=== PATIENT | male | born 1950 | race Caucasian/White ===

== ENCOUNTER 2018-06-20 17:12 | Inpatient (IN) | payer OTHER ==
[~2018-06-20] VITALS: Ht 188 cm; Wt 150.9 kg
[2018-06-20 17:42] LABS: BASOPHILS % (AUTO) 0.8 % (0.0-5.0); EOSINOPHILS % (AUTO) 1.9 % (0.0-8.0); HEMATOCRIT 40.4 % (42-54); LYMPHOCYTES % (AUTO) 11.3 % (21.0-51.0); MEAN CORPUSCULAR HEMOGLOBIN 29.9 pg (27.0-33.0); MEAN CORPUSCULAR HGB CONC 32.7 g/dL (32.0-36.0); MEAN CORPUSCULAR VOLUME 91.5 fL (79-99); PLATELET COUNT (AUTO) 177 K/uL (130-400); RED BLOOD CELL COUNT(AUTO) 4.41 MIL/uL (4.50-6.20); RED CELL DISTRIBUTION WIDTH 15.3 % (11.0-15.5); WHITE BLOOD COUNT (AUTO) 8.5 K/uL (4.8-10.8)
[2018-06-20 17:54] LABS: INR 1.03 (0.85-1.15); PARTIAL THROMBOPLASTIN TIME 27.5 SEC (26.3-35.5); PROTHROMBIN TIME 10.8 SEC (9.6-11.6)
[2018-06-20 17:58] LABS: CREATININE 1.1 mg/dL (0.5-1.5); POTASSIUM 3.4 mmol/L (3.5-5.1)
[2018-06-20 18:12] LABS: ALBUMIN 3.6 g/dL (3.5-5.0); BILIRUBIN,TOTAL 0.8 mg/dL (0.2-1.0); CREATINE KINASE MB 1.3 ng/mL (0.5-3.6); TOTAL PROTEIN, SERUM 6.8 g/dL (6.0-8.3)
[2018-06-20] MEDS ORDERED: FUROSEMIDE 10 MG/ML 4ML VIAL ONE (19:04)
[2018-06-20] MEDS ORDERED: LIDOCAINE HCL-MPF 1% 2ML VIAL IVP PRN (20:45)
[2018-06-20] MEDS ORDERED: ONDANSETRON HCL 4 MG/2 ML VIAL IV PRN (20:45)
[2018-06-20] MEDS ORDERED: POTASSIUM CHLORIDE 10% ELIXIR 20 MEQ/15 ML UDCUP PO PRN (20:45)
[2018-06-20] MEDS ORDERED: POTASSIUM CHLORIDE 20MEQ/100ML 100 ML IV PRN (20:45)
[2018-06-20] MEDS ORDERED: ACETAMINOPHEN 325 MG TAB PO PRN (20:45)
[2018-06-20] MEDS: ENOXAPARIN SODIUM 80 MG/0.8 ML SQ SCH (21:00)
[2018-06-20] MEDS: FUROSEMIDE 10 MG/ML 4ML VIAL IVP SCH (21:00)
[2018-06-20] MEDS: LABETALOL 20 MG/4 ML DISP.SYRIN IV SCH (22:15)
[2018-06-20] MEDS ORDERED: LABETALOL HCL 5 MG/ML 20ML VIAL IV ONE (23:12)
[2018-06-20 23:45] VITALS: BP 156/92
[2018-06-21] MEDS: POTASSIUM CHLORIDE 20 MEQ ERTAB PO PRN (00:56)
[2018-06-21 04:00] VITALS: BP 142/84
[2018-06-21 04:56] LABS: BASOPHILS % (AUTO) 0.8 % (0.0-5.0); EOSINOPHILS % (AUTO) 2.5 % (0.0-8.0); HEMATOCRIT 38.6 % (42-54); LYMPHOCYTES % (AUTO) 12.3 % (21.0-51.0); MEAN CORPUSCULAR HEMOGLOBIN 31.1 pg (27.0-33.0); MEAN CORPUSCULAR HGB CONC 34.1 g/dL (32.0-36.0); MEAN CORPUSCULAR VOLUME 91.2 fL (79-99); MONOCYTES % (AUTO) 7.9 % (3.0-13.0); NEUTROPHILS % (AUTO) 76.5 % (40.0-77.0); PLATELET COUNT (AUTO) 204 K/uL (130-400); RED BLOOD CELL COUNT(AUTO) 4.23 MIL/uL (4.50-6.20); RED CELL DISTRIBUTION WIDTH 15.9 % (11.0-15.5); WHITE BLOOD COUNT (AUTO) 7.7 K/uL (4.8-10.8)
[2018-06-21 05:06] LABS: ALBUMIN 3.4 g/dL (3.5-5.0); CREATININE 1.2 mg/dL (0.5-1.5); MAGNESIUM 1.8 mg/dL (1.80-2.40); POTASSIUM 3.6 mmol/L (3.5-5.1); TOTAL PROTEIN, SERUM 6.7 g/dL (6.0-8.3)
[2018-06-21 05:41] LABS: B-TYPE NATRIURETIC PEPTIDE 833 pg/mL (0-100)
[2018-06-21 08:00] VITALS: BP 140/87
[2018-06-21] MEDS: ENOXAPARIN SODIUM 80 MG/0.8 ML SQ SCH ×2 (09:31→21:48)
[2018-06-21] MEDS: FLUNISOLIDE 25 MCG/SPRAY 25 ML NASAL SPRY EN SCH ×2 (09:31→21:49)
[2018-06-21] MEDS: PANTOPRAZOLE SODIUM 40 MG TABLET.DR PO SCH (09:32)
[2018-06-21] MEDS: FUROSEMIDE 10 MG/ML 4ML VIAL IVP SCH ×2 (09:32→21:46)
[2018-06-21 11:00] VITALS: BP 168/104
[2018-06-21] MEDS ORDERED: METO50TA18 PO (17:56)
[2018-06-21] MEDS ORDERED: VIT1CAPS47 PO (17:56)
[2018-06-21] MEDS ORDERED: FURO40TA5 PO (17:56)
[2018-06-21] MEDS ORDERED: CHOL100040 PO (17:56)
[2018-06-21] MEDS ORDERED: BUDE10.2 IH (17:56)
[2018-06-21] MEDS ORDERED: HYDR-4060 PO (17:56)
[2018-06-21] MEDS ORDERED: TRAZ-187 PO (17:56)
[2018-06-21] MEDS ORDERED: TAMS0.4C32 PO (17:56)
[2018-06-21] MEDS ORDERED: ISOS60TA4 PO (17:56)
[2018-06-21] MEDS ORDERED: FERR325T22 PO (17:56)
[2018-06-21] MEDS ORDERED: ATOR40TA71 PO (17:56)
[2018-06-21] MEDS ORDERED: POTA99TA4 PO (17:56)
[2018-06-21] MEDS ORDERED: ALBU8.5H8 IH (17:56)
[2018-06-21] MEDS ORDERED: ALLO100T PO (17:56)
[2018-06-21] MEDS ORDERED: AEC81 PO (17:56)
[2018-06-21 19:00] VITALS: BP 161/80
[2018-06-21] MEDS: LABETALOL 20 MG/4 ML DISP.SYRIN IV SCH (21:58)
[2018-06-21 23:57] VITALS: BP 145/82
[2018-06-22 04:00] VITALS: BP 158/64
[2018-06-22 05:21] LABS: BASOPHILS % (AUTO) 0.7 % (0.0-5.0); EOSINOPHILS % (AUTO) 2.5 % (0.0-8.0); HEMATOCRIT 41.9 % (42-54); LYMPHOCYTES % (AUTO) 13.7 % (21.0-51.0); MEAN CORPUSCULAR HEMOGLOBIN 30.2 pg (27.0-33.0); MEAN CORPUSCULAR HGB CONC 33.3 g/dL (32.0-36.0); MEAN CORPUSCULAR VOLUME 90.8 fL (79-99); MONOCYTES % (AUTO) 8.5 % (3.0-13.0); NEUTROPHILS % (AUTO) 74.6 % (40.0-77.0); NUCLEATED RED BLOOD CELLS 0.1 % (0.0-0.19); PLATELET COUNT (AUTO) 200 K/uL (130-400); RED BLOOD CELL COUNT(AUTO) 4.61 MIL/uL (4.50-6.20); RED CELL DISTRIBUTION WIDTH 15.4 % (11.0-15.5); WHITE BLOOD COUNT (AUTO) 8.8 K/uL (4.8-10.8)
[2018-06-22 05:46] LABS: B-TYPE NATRIURETIC PEPTIDE 1090 pg/mL (0-100)
[2018-06-22 05:49] LABS: ALBUMIN 3.6 g/dL (3.5-5.0); CREATININE 1.3 mg/dL (0.5-1.5); POTASSIUM 3.5 mmol/L (3.5-5.1); TOTAL PROTEIN, SERUM 7.2 g/dL (6.0-8.3)
[2018-06-22 07:00] VITALS: BP 159/74
[2018-06-22] MEDS: FUROSEMIDE 10 MG/ML 4ML VIAL IVP SCH ×2 (09:35→20:28)
[2018-06-22] MEDS: PANTOPRAZOLE SODIUM 40 MG TABLET.DR PO SCH (09:36)
[2018-06-22] MEDS: ENOXAPARIN SODIUM 80 MG/0.8 ML SQ SCH ×2 (09:36→20:28)
[2018-06-22] MEDS: FLUNISOLIDE 25 MCG/SPRAY 25 ML NASAL SPRY EN SCH ×2 (09:42→20:26)
[2018-06-22 11:00] VITALS: BP 166/86
[2018-06-22] MEDS ORDERED: HYDROCODONE/ACETAMINOPHEN 5/325 MG TAB PO PRN (12:45)
[2018-06-22] MEDS ORDERED: TRAZODONE HCL 100 MG TABLET PO PRN (12:45)
[2018-06-22 15:52] LABS: CREATINE KINASE MB 1.3 ng/mL (0.5-3.6); CREATINE KINASE, TOTAL 198 U/L (21-232); MYOGLOBIN 86 ng/mL (10-92); TROPONIN I < 0.04 ng/mL (0.00-0.06)
[2018-06-22 16:00] VITALS: BP 145/79
[2018-06-22] MEDS: ATORVASTATIN CALCIUM 40 MG TABLET PO SCH (16:51)
[2018-06-22] MEDS: POTASSIUM CHLORIDE 20 MEQ ERTAB PO PRN ×2 (16:52→18:47)
[2018-06-22] MEDS: ALBUTEROL SULFATE 0.083% 2.5 MG/3 ML INH IH SCH ×2 (18:06→23:25)
[2018-06-22] MEDS: BUDESONIDE 0.5 MG/2 ML INH IH SCH (18:06)
[2018-06-22 19:00] VITALS: BP 159/96
[2018-06-22] MEDS: METOPROLOL TARTRATE 50 MG TAB PO SCH (20:27)
[2018-06-22] MEDS ORDERED: SUB PER P&T FOR ASTHMA OR COPD RECOMMENDATION IH SCH (21:00)
[2018-06-23] VITALS (8 sets, daily range): BP systolic 123–159; BP diastolic 47–92
[2018-06-23] MEDS: ALBUTEROL SULFATE 0.083% 2.5 MG/3 ML INH IH SCH ×4 (05:57→23:08)
[2018-06-23] MEDS: BUDESONIDE 0.5 MG/2 ML INH IH SCH ×2 (05:57→18:35)
[2018-06-23] MEDS: ASPIRIN 81 MG EC TAB PO SCH (08:48)
[2018-06-23] MEDS: PANTOPRAZOLE SODIUM 40 MG TABLET.DR PO SCH (08:48)
[2018-06-23] MEDS: TAMSULOSIN HCL 0.4 MG CAP.ER.24H PO SCH (08:49)
[2018-06-23] MEDS: ENOXAPARIN SODIUM 80 MG/0.8 ML SQ SCH ×2 (08:49→21:04)
[2018-06-23] MEDS: METOPROLOL TARTRATE 50 MG TAB PO SCH ×2 (08:49→21:03)
[2018-06-23] MEDS: POTASSIUM CHLORIDE 10 MEQ/TAB.SA PO SCH (08:50)
[2018-06-23] MEDS: ALLOPURINOL 100 MG TABLET PO SCH (08:50)
[2018-06-23] MEDS: FERROUS SULFATE 325 MG TABLET.DR PO SCH ×3 (08:53→18:32)
[2018-06-23] MEDS: ISOSORBIDE MONO 60 MG TAB.SR PO SCH (08:53)
[2018-06-23] MEDS: Cholecalciferol (Vitamin D3) 1,000 UNIT PO SCH (08:55)
[2018-06-23] MEDS: [UNRECOGNIZED DRUG - OTHER] PO SCH ×2 (08:55→21:00)
[2018-06-23] MEDS: FUROSEMIDE 10 MG/ML 4ML VIAL IVP SCH ×2 (08:56→21:03)
[2018-06-23 10:19] LABS: EOSINOPHILS % (AUTO) 2.9 % (0.0-8.0); HEMATOCRIT 39.3 % (42-54); LYMPHOCYTES % (AUTO) 12.9 % (21.0-51.0); MEAN CORPUSCULAR HEMOGLOBIN 30.6 pg (27.0-33.0); MEAN CORPUSCULAR HGB CONC 33.6 g/dL (32.0-36.0); MEAN CORPUSCULAR VOLUME 91.2 fL (79-99); MONOCYTES % (AUTO) 7.4 % (3.0-13.0); NEUTROPHILS % (AUTO) 75.8 % (40.0-77.0); NUCLEATED RED BLOOD CELLS 0.1 % (0.0-0.19); PLATELET COUNT (AUTO) 207 K/uL (130-400); RED BLOOD CELL COUNT(AUTO) 4.31 MIL/uL (4.50-6.20); RED CELL DISTRIBUTION WIDTH 15.6 % (11.0-15.5)
[2018-06-23] MEDS: FLUNISOLIDE 25 MCG/SPRAY 25 ML NASAL SPRY EN SCH ×2 (18:32→21:06)
[2018-06-23] MEDS: ATORVASTATIN CALCIUM 40 MG TABLET PO SCH (18:32)
[2018-06-23] MEDS: POTASSIUM CHLORIDE 20 MEQ ERTAB PO PRN (21:21)
[2018-06-24 05:00] VITALS: BP 135/74
[2018-06-24 05:29] LABS: CREATININE 1.2 mg/dL (0.5-1.5); POTASSIUM 3.5 mmol/L (3.5-5.1)
[2018-06-24] MEDS: FERROUS SULFATE 325 MG TABLET.DR PO SCH ×3 (05:59→17:42)
[2018-06-24] MEDS: POTASSIUM CHLORIDE 20 MEQ ERTAB PO PRN (06:00)
[2018-06-24] MEDS: ALBUTEROL SULFATE 0.083% 2.5 MG/3 ML INH IH SCH ×4 (06:17→23:14)
[2018-06-24] MEDS: BUDESONIDE 0.5 MG/2 ML INH IH SCH ×2 (06:17→18:36)
[2018-06-24 07:38] LABS: ABG BASE EXCESS 4.3 mmol/L (-2.0-3.0); ABG HCO3 29.4 mmol/L (21.0-28.0); ABG OXYGEN SATURATION 92.8 % (95.0-99.0); ABG PCO2 46 mmHg (35-48)
[2018-06-24] MEDS: TAMSULOSIN HCL 0.4 MG CAP.ER.24H PO SCH (07:55)
[2018-06-24] MEDS: ISOSORBIDE MONO 60 MG TAB.SR PO SCH (07:56)
[2018-06-24] MEDS: PANTOPRAZOLE SODIUM 40 MG TABLET.DR PO SCH (07:56)
[2018-06-24] MEDS: ASPIRIN 81 MG EC TAB PO SCH (07:57)
[2018-06-24] MEDS: POTASSIUM CHLORIDE 10 MEQ/TAB.SA PO SCH (07:57)
[2018-06-24] MEDS: ALLOPURINOL 100 MG TABLET PO SCH (07:57)
[2018-06-24] MEDS: FUROSEMIDE 10 MG/ML 4ML VIAL IVP SCH ×2 (07:57→21:03)
[2018-06-24] MEDS: METOPROLOL TARTRATE 50 MG TAB PO SCH ×2 (07:57→21:03)
[2018-06-24] MEDS: ENOXAPARIN SODIUM 80 MG/0.8 ML SQ SCH ×2 (07:58→21:03)
[2018-06-24] MEDS: Cholecalciferol (Vitamin D3) 1,000 UNIT PO SCH (07:58)
[2018-06-24] MEDS: FLUNISOLIDE 25 MCG/SPRAY 25 ML NASAL SPRY EN SCH ×2 (07:59→21:04)
[2018-06-24] MEDS: [UNRECOGNIZED DRUG - OTHER] PO SCH ×2 (07:59→21:00)
[2018-06-24 08:34] VITALS: BP 137/84
[2018-06-24 12:43] VITALS: BP 115/60
[2018-06-24 16:00] VITALS: BP 136/83
[2018-06-24] MEDS: ATORVASTATIN CALCIUM 40 MG TABLET PO SCH (17:42)
[2018-06-24 19:00] VITALS: BP 142/83
[2018-06-24 23:00] VITALS: BP 148/89
[2018-06-25 03:00] VITALS: BP 136/75
[2018-06-25 05:43] LABS: BASOPHILS % (AUTO) 0.8 % (0.0-5.0); EOSINOPHILS % (AUTO) 2.5 % (0.0-8.0); HEMATOCRIT 39.5 % (42-54); MEAN CORPUSCULAR HGB CONC 33.9 g/dL (32.0-36.0); MEAN CORPUSCULAR VOLUME 91.3 fL (79-99); MONOCYTES % (AUTO) 7.8 % (3.0-13.0); NEUTROPHILS % (AUTO) 73.9 % (40.0-77.0); PLATELET COUNT (AUTO) 200 K/uL (130-400); RED BLOOD CELL COUNT(AUTO) 4.33 MIL/uL (4.50-6.20); RED CELL DISTRIBUTION WIDTH 15.6 % (11.0-15.5); WHITE BLOOD COUNT (AUTO) 6.3 K/uL (4.8-10.8)
[2018-06-25 05:50] LABS: CREATININE 1.2 mg/dL (0.5-1.5); POTASSIUM 3.7 mmol/L (3.5-5.1)
[2018-06-25] MEDS: BUDESONIDE 0.5 MG/2 ML INH IH SCH ×2 (06:09→18:10)
[2018-06-25] MEDS: ALBUTEROL SULFATE 0.083% 2.5 MG/3 ML INH IH SCH ×3 (06:09→18:10)
[2018-06-25 06:13] LABS: B-TYPE NATRIURETIC PEPTIDE 564 pg/mL (0-100)
[2018-06-25] MEDS: FERROUS SULFATE 325 MG TABLET.DR PO SCH ×3 (06:21→16:47)
[2018-06-25 07:00] VITALS: BP 134/69
[2018-06-25] MEDS: FLUNISOLIDE 25 MCG/SPRAY 25 ML NASAL SPRY EN SCH ×2 (07:54→21:33)
[2018-06-25] MEDS: ALLOPURINOL 100 MG TABLET PO SCH (07:55)
[2018-06-25] MEDS: ASPIRIN 81 MG EC TAB PO SCH (07:55)
[2018-06-25] MEDS: TAMSULOSIN HCL 0.4 MG CAP.ER.24H PO SCH (07:55)
[2018-06-25] MEDS: PREDNISONE 10 MG TABLET PO SCH (07:55)
[2018-06-25] MEDS: PANTOPRAZOLE SODIUM 40 MG TABLET.DR PO SCH (07:55)
[2018-06-25] MEDS: ISOSORBIDE MONO 60 MG TAB.SR PO SCH (07:55)
[2018-06-25] MEDS: METOPROLOL TARTRATE 50 MG TAB PO SCH ×2 (07:55→21:23)
[2018-06-25] MEDS: POTASSIUM CHLORIDE 10 MEQ/TAB.SA PO SCH (07:56)
[2018-06-25] MEDS: [UNRECOGNIZED DRUG - OTHER] PO SCH ×2 (08:02→21:00)
[2018-06-25] MEDS: ENOXAPARIN SODIUM 80 MG/0.8 ML SQ SCH ×2 (08:02→21:23)
[2018-06-25] MEDS: FUROSEMIDE 10 MG/ML 4ML VIAL IVP SCH (08:03)
[2018-06-25] MEDS: Cholecalciferol (Vitamin D3) 1,000 UNIT PO SCH (09:00)
[2018-06-25] MEDS: FUROSEMIDE 40 MG TABLET PO SCH ×2 (09:00→16:47)
[2018-06-25 11:00] VITALS: BP 124/67
[2018-06-25 16:00] VITALS: BP 110/69
[2018-06-25] MEDS: ATORVASTATIN CALCIUM 40 MG TABLET PO SCH (16:46)
[2018-06-25 20:00] VITALS: BP 138/78
[2018-06-26] VITALS: BP 140/77
[2018-06-26 04:00] VITALS: BP 148/90
[2018-06-26 05:01] LABS: BASOPHILS % (AUTO) 0.7 % (0.0-5.0); EOSINOPHILS % (AUTO) 2.5 % (0.0-8.0); HEMATOCRIT 39.7 % (42-54); MEAN CORPUSCULAR HEMOGLOBIN 30.1 pg (27.0-33.0); MEAN CORPUSCULAR HGB CONC 33.4 g/dL (32.0-36.0); MEAN CORPUSCULAR VOLUME 90.2 fL (79-99); MONOCYTES % (AUTO) 8.3 % (3.0-13.0); NEUTROPHILS % (AUTO) 72.5 % (40.0-77.0); PLATELET COUNT (AUTO) 176 K/uL (130-400); RED BLOOD CELL COUNT(AUTO) 4.39 MIL/uL (4.50-6.20); RED CELL DISTRIBUTION WIDTH 15.5 % (11.0-15.5); WHITE BLOOD COUNT (AUTO) 7.1 K/uL (4.8-10.8)
[2018-06-26 05:07] LABS: CREATININE 1.1 mg/dL (0.5-1.5); POTASSIUM 3.5 mmol/L (3.5-5.1)
[2018-06-26] MEDS: ALBUTEROL SULFATE 0.083% 2.5 MG/3 ML INH IH SCH ×3 (06:38→10:56)
[2018-06-26] MEDS: BUDESONIDE 0.5 MG/2 ML INH IH SCH (06:39)
[2018-06-26 07:00] VITALS: BP 141/92
[2018-06-26] MEDS: FERROUS SULFATE 325 MG TABLET.DR PO SCH (07:30)
[2018-06-26] MEDS: [UNRECOGNIZED DRUG - OTHER] PO SCH (09:00)
[2018-06-26] MEDS: Cholecalciferol (Vitamin D3) 1,000 UNIT PO SCH (09:00)
[2018-06-26] MEDS: PANTOPRAZOLE SODIUM 40 MG TABLET.DR PO SCH (09:19)
[2018-06-26] MEDS: ISOSORBIDE MONO 60 MG TAB.SR PO SCH (09:19)
[2018-06-26] MEDS: TAMSULOSIN HCL 0.4 MG CAP.ER.24H PO SCH (09:19)
[2018-06-26] MEDS: ASPIRIN 81 MG EC TAB PO SCH (09:20)
[2018-06-26] MEDS: PREDNISONE 10 MG TABLET PO SCH (09:20)
[2018-06-26] MEDS: POTASSIUM CHLORIDE 10 MEQ/TAB.SA PO SCH (09:20)
[2018-06-26] MEDS: ALLOPURINOL 100 MG TABLET PO SCH (09:20)
[2018-06-26] MEDS: FUROSEMIDE 40 MG TABLET PO SCH (09:20)
[2018-06-26] MEDS: METOPROLOL TARTRATE 50 MG TAB PO SCH (09:20)
[2018-06-26] MEDS: ENOXAPARIN SODIUM 80 MG/0.8 ML SQ SCH (09:21)
[2018-06-26] MEDS: FLUNISOLIDE 25 MCG/SPRAY 25 ML NASAL SPRY EN SCH (09:23)
[2018-06-26 11:00] VITALS: BP 122/72
[2018-06-26 16:00] VITALS: BP 136/92
[2018-06-26] MEDS ORDERED: POTASSIUM CHLORIDE 20 MEQ ERTAB PO SCH (21:00)
[2018-06-26] MEDS ORDERED: ENALAPRIL MALEATE 5 MG TAB PO SCH (21:00)
== END 2018-06-26 17:38 | disposition home or self-care (01) | DRG 292 ==
LOC: EDH 17:12 → EDHIP 19:21 → 3BH 23:29
PROVIDERS: ADMIT Internal Medicine; ATTEND Internal Medicine
DX: I11.0 Hypertensive heart disease with heart failure (principal); J44.1 Chronic obstructive pulmonary disease with (acute) exacerbation; Z68.41 Body mass index [BMI] 40.0-44.9, adult; I50.43 Acute on chronic combined systolic (congestive) and diastolic (congestive) heart failure; E66.01 Morbid (severe) obesity due to excess calories; I25.5 Ischemic cardiomyopathy; M10.9 Gout, unspecified; E78.5 Hyperlipidemia, unspecified; E87.6 Hypokalemia; G47.30 Sleep apnea, unspecified; I25.10 Atherosclerotic heart disease of native coronary artery without angina pectoris; N40.0 Benign prostatic hyperplasia without lower urinary tract symptoms; K21.9 Gastro-esophageal reflux disease without esophagitis; F32.9 Major depressive disorder, single episode, unspecified; M19.90 Unspecified osteoarthritis, unspecified site; R09.02 Hypoxemia; Z99.3 Dependence on wheelchair; I25.2 Old myocardial infarction; Z95.5 Presence of coronary angioplasty implant and graft; Z87.891 Personal history of nicotine dependence; Z83.3 Family history of diabetes mellitus
CPT/HCPCS: 36415; 36600; 71045; 80048; 80053; 82550; 82553; 82803; 83735; 83874; 83880; 84484; 85025; 85610; 85730; 93005; 93306; 94010; 94640; 94660; 94664; 94760; 97039; J1650; J1940; J3490; J7512

== ENCOUNTER 2019-11-15 05:08 | Emergency (ER) | payer OTHER ==
[~2019-11-15 05:08] MED LIST: AEC81 PO; ALBU8.5H8 IH; ALLO100T PO; ATOR40TA71 PO; BUDE10.2 IH; CHOL100040 PO; FERR325T22 PO; FURO40TA5 PO; HYDR-4060 PO; ISOS60TA4 PO; METO50TA18 PO; POTA99TA4 PO; TAMS0.4C32 PO; TRAZ-187 PO; VIT1CAPS47 PO
[2019-11-15 05:40] LABS: BASOPHILS % (AUTO) 0.8 % (0.0-5.0); EOSINOPHILS % (AUTO) 12.7 % (0.0-8.0); HEMATOCRIT 39.5 % (42-54); LYMPHOCYTES % (AUTO) 13.5 % (21.0-51.0); MEAN CORPUSCULAR HEMOGLOBIN 30.7 pg (27.0-33.0); MEAN CORPUSCULAR HGB CONC 32.7 g/dL (32.0-36.0); MONOCYTES % (AUTO) 8.9 % (3.0-13.0); NEUTROPHILS % (AUTO) 63.7 % (40.0-77.0); PLATELET COUNT (AUTO) 306 K/uL (130-400); RED CELL DISTRIBUTION WIDTH 13.7 % (11.0-15.5); WHITE BLOOD COUNT (AUTO) 11.2 K/uL (4.8-10.8)
[2019-11-15 05:49] LABS: CREATININE 1.3 mg/dL (0.5-1.5)
[2019-11-15 05:54] LABS: ALBUMIN 3.1 g/dL (3.5-5.0); BILIRUBIN,TOTAL 0.7 mg/dL (0.2-1.0); TOTAL PROTEIN, SERUM 7.4 g/dL (6.0-8.3)
[2019-11-15] MEDS ORDERED: IOHEXOL-350 75 ML VIAL IV ONE (06:53)
[2019-11-15 08:12] LABS: APPEARANCE,URINE Clear (CLEAR); BILIRUBIN,URINE Negative (NEGATIVE); COLOR,URINE Yellow (YELLOW); GLUCOSE, URINE (UA) Negative (NEGATIVE); KETONES,URINE Negative (NEGATIVE); LEUKOCYTE ESTERASE ,URINE Negative (NEGATIVE); NITRATE,URINE Negative (NEGATIVE); OCCULT BLOOD,URINE Negative (NEGATIVE); PROTEIN,URINE Negative (NEGATIVE)
== END 2019-11-15 09:33 | disposition home or self-care (01) ==
LOC: EDH 05:08
DX: R10.30 Lower abdominal pain, unspecified (principal); G47.00 Insomnia, unspecified; I11.0 Hypertensive heart disease with heart failure; I50.9 Heart failure, unspecified; J44.9 Chronic obstructive pulmonary disease, unspecified; K21.9 Gastro-esophageal reflux disease without esophagitis; E78.5 Hyperlipidemia, unspecified; I10 Essential (primary) hypertension; Z88.8 Allergy status to other drugs, medicaments and biological substances; Z87.891 Personal history of nicotine dependence
CPT/HCPCS: 36415; 74177; 80053; 81003; 82150; 83690; 85025; 93005; 99285; Q9967

== ENCOUNTER 2020-02-10 14:24 | Inpatient (IN) | payer OTHER ==
[~2020-02-10] VITALS: Ht 188 cm; Wt 143.5 kg
[2020-02-10] MEDS ORDERED: ASPIRIN 325 MG TABLET ONE (15:04)
[2020-02-10 15:18] LABS: BASOPHILS % (AUTO) 0.6 % (0.0-5.0); EOSINOPHILS % (AUTO) 2.6 % (0.0-8.0); HEMATOCRIT 39.7 % (42-54); LYMPHOCYTES % (AUTO) 12.1 % (21.0-51.0); MEAN CORPUSCULAR HEMOGLOBIN 31.1 pg (27.0-33.0); MEAN CORPUSCULAR HGB CONC 33.5 g/dL (32.0-36.0); MONOCYTES % (AUTO) 6.7 % (3.0-13.0); NEUTROPHILS % (AUTO) 77.5 % (40.0-77.0); PLATELET COUNT (AUTO) 193 K/uL (130-400); RED BLOOD CELL COUNT(AUTO) 4.27 MIL/uL (4.50-6.20); RED CELL DISTRIBUTION WIDTH 14.9 % (11.0-15.5); WHITE BLOOD COUNT (AUTO) 10.3 K/uL (4.8-10.8)
[2020-02-10 15:28] LABS: CREATININE 1.3 mg/dL (0.5-1.5); POTASSIUM 3.9 mmol/L (3.5-5.1)
[2020-02-10 15:32] LABS: ALBUMIN 3.6 g/dL (3.5-5.0); BILIRUBIN,TOTAL 0.6 mg/dL (0.2-1.0)
[2020-02-10 15:37] LABS: INR 0.95 (0.85-1.15); PARTIAL THROMBOPLASTIN TIME 25.9 SEC (26.3-35.5); PROTHROMBIN TIME 10.3 SEC (9.6-11.6)
[2020-02-10 15:45] LABS: B-TYPE NATRIURETIC PEPTIDE 168 pg/mL (0-100)
[2020-02-10 16:16] LABS: CRP QUANTITATIVE 6.9 mg/L (0.00-9.0)
[2020-02-10] MEDS ORDERED: AZITHROMYCIN 500MG+NS 250ML 250 ML IV ONE (16:45)
[2020-02-10] MEDS ORDERED: CEFTRIAXONE SODIUM 1 GM ONE (16:45)
[2020-02-10] MEDS ORDERED: ACETAMINOPHEN 325 MG TAB PO PRN (18:00)
[2020-02-10] MEDS ORDERED: BENZONATATE 100 MG CAPSULE PO PRN (18:00)
[2020-02-10] MEDS ORDERED: ONDANSETRON HCL 4 MG/2 ML VIAL IVP PRN (18:00)
[2020-02-10] MEDS ORDERED: GUAIFENESIN-CODEINE 5 ML SYRUP PO PRN (18:00)
[2020-02-10] MEDS ORDERED: IOHEXOL-350 75 ML VIAL IV ONE (18:45)
[2020-02-10 20:09] VITALS: BP 150/81
[2020-02-10] MEDS ORDERED: ATORVASTATIN CALCIUM 20 MG TABLET PO SCH (21:00)
[2020-02-10 21:21] LABS: CREATINE KINASE, TOTAL 109 U/L (21-232); MYOGLOBIN 123 ng/mL (10-92); TROPONIN I < 0.04 ng/mL (0.00-0.06)
[2020-02-10] MEDS ORDERED: LOSA50TA64 PO (21:32)
[2020-02-10] MEDS ORDERED: VIT1CAPS47 PO (21:32)
[2020-02-10] MEDS ORDERED: FLUT1BLS13 IH (21:32)
[2020-02-10] MEDS ORDERED: POLY30DR OP (21:32)
[2020-02-10] MEDS ORDERED: TIOT4MIS5 IH (21:32)
[2020-02-10] MEDS ORDERED: DOCU100C33 PO (21:32)
[2020-02-10] MEDS ORDERED: DIPH50CA4 PO (21:32)
[2020-02-10] MEDS ORDERED: NITR0.4T50 SL (21:32)
[2020-02-11] VITALS (7 sets, daily range): BP systolic 105–155; BP diastolic 53–85
--- NOTE | 2020-02-11 00:09 | NUR ---
HOME MEDS 0000: hourly rounding performed. vital signs taken by unit pct. patient stated he took his home dose of metoprolol 50mg and trazadone 100mg. Patient educations reinforced regarding discontinuing using of home meds while in the hospital setting until they are restarted by physician. Patient stated understanding. Patient showing no signs of distress, will continue to monitor.
--- NOTE | 2020-02-11 00:18 | NUR ---
0015: Resp. PCR results positive for human rhinovirus/enterovirus, per union laborer [id number]: paged at this time by community outreach coordinator, pending call back. Addendum: 02/11/20 at 0636 by LISSETTE GIRALDO RN RN [id number]: LILLIE HYATT, returned call at this time. Notified of positive PCR results by primary nurse, lissette giraldo RN. no new orders received. notified of patient taking home medications at bedside, TILE MOLDER aware will restart home medications. no new orders received.
[2020-02-11] MEDS ORDERED: DOCUSATE SODIUM 100 MG CAP PO PRN (01:15)
[2020-02-11] MEDS ORDERED: ALBUTEROL SULFATE 0.083% 2.5 MG/3 ML INH IH PRN (01:15)
[2020-02-11] MEDS ORDERED: HYDROCODONE/ACETAMINOPHEN 5/325 MG TAB PO PRN (01:15)
[2020-02-11] MEDS ORDERED: DIPHENHYDRAMINE HCL 50 MG CAPSULE PO PRN (01:15)
[2020-02-11] MEDS ORDERED: TRAZODONE HCL 100 MG TABLET PO PRN (01:15)
[2020-02-11] MEDS: IPRATROPIUM 0.5 MG/2.5 ML INH IH SCH ×2 (01:45→05:13)
[2020-02-11] MEDS: ALBUTEROL SULFATE 0.083% 2.5 MG/3 ML INH IH SCH ×2 (01:45→05:14)
[2020-02-11] MEDS: BUDESONIDE 0.5 MG/2 ML INH IH SCH ×2 (05:14→18:00)
[2020-02-11 05:34] LABS: BASOPHILS % (AUTO) 0.6 % (0.0-5.0); EOSINOPHILS % (AUTO) 2.9 % (0.0-8.0); HEMATOCRIT 40.2 % (42-54); LYMPHOCYTES % (AUTO) 12.8 % (21.0-51.0); MEAN CORPUSCULAR HEMOGLOBIN 31.5 pg (27.0-33.0); MEAN CORPUSCULAR HGB CONC 33.6 g/dL (32.0-36.0); MEAN CORPUSCULAR VOLUME 93.9 fL (79-99); MONOCYTES % (AUTO) 5.7 % (3.0-13.0); NEUTROPHILS % (AUTO) 77.7 % (40.0-77.0); PLATELET COUNT (AUTO) 188 K/uL (130-400); RED BLOOD CELL COUNT(AUTO) 4.28 MIL/uL (4.50-6.20); RED CELL DISTRIBUTION WIDTH 14.7 % (11.0-15.5); WHITE BLOOD COUNT (AUTO) 10.3 K/uL (4.8-10.8)
[2020-02-11 05:59] LABS: B-TYPE NATRIURETIC PEPTIDE 205 pg/mL (0-100); CARBON DIOXIDE 29 mmol/L (21-32); CHLORIDE 101 mmol/L (101-111); CREATINE KINASE, TOTAL 160 U/L (21-232); CREATININE 1.1 mg/dL (0.5-1.5); GLOMERULAR FILTR. RATE CALC 70 mL/min (>60); GLUCOSE,RANDOM 116 mg/dL (70-105); MYOGLOBIN 95 ng/mL (10-92); POTASSIUM 3.9 mmol/L (3.5-5.1); SODIUM SERUM 136 mmol/L (136-145); TROPONIN I < 0.04 ng/mL (0.00-0.06); UREA NITROGEN, BLOOD 14 mg/dL (7-18)
[2020-02-11] MEDS: FERROUS SULFATE 325 MG TABLET.DR PO SCH ×2 (06:34→12:10)
[2020-02-11] MEDS: ALLOPURINOL 100 MG TABLET PO SCH (08:21)
[2020-02-11] MEDS: ISOSORBIDE MONO 60 MG TAB.SR PO SCH (08:21)
[2020-02-11] MEDS: LOSARTAN 50 MG TABLET PO SCH (08:21)
[2020-02-11] MEDS: TAMSULOSIN HCL 0.4 MG CAP.ER.24H PO SCH (08:22)
[2020-02-11] MEDS: METOPROLOL TARTRATE 50 MG TAB PO SCH ×2 (08:22→20:06)
[2020-02-11] MEDS: ASPIRIN 81MG TAB.CHEW PO SCH (08:22)
[2020-02-11] MEDS: ENOXAPARIN SODIUM 40 MG/0.4 ML SYRINGE SQ SCH (08:23)
[2020-02-11] MEDS: [UNRECOGNIZED DRUG - OTHER] PO SCH (08:30)
[2020-02-11] MEDS: CHOLECALCIFEROL 1000 UNIT PO SCH (08:38)
[2020-02-11] MEDS: ARTIFICAL TEARS SOL 15 ML OP SCH ×3 (08:41→20:13)
[2020-02-11] MEDS ORDERED: FUROSEMIDE 40 MG TABLET PO SCH (09:00)
[2020-02-11] MEDS ORDERED: ASPIRIN 81 MG EC TAB PO SCH (09:00)
[2020-02-11] MEDS ORDERED: FLUTICASONE IH SCH (11:30)
[2020-02-11] MEDS ORDERED: SALMETEROL IH SCH (11:30)
[2020-02-11] MEDS: ALBUTEROL INHALER 90MCG/INH IH SCH ×2 (12:10→18:00)
[2020-02-11] MEDS: FUROSEMIDE 10 MG/ML 4ML VIAL IV SCH ×2 (12:10→20:06)
[2020-02-11] MEDS: AZITHROMYCIN 250 MG TABLET PO SCH (12:10)
[2020-02-11] MEDS: PREDNISONE 10 MG TABLET PO SCH (12:10)
--- NOTE | 2020-02-11 14:08 | NUR ---
INITIAL SPOKE W SPOUSE MELIDA VIA PHONE, CONFIRMS PATIENT HAS ALL DME AT HOME- OXYGEN, RECLINER, HOSPTIAL BED, WHEEL CHAIR, WHEELCHAIR VAN, WALKER, SHOWER CHAIR- DOES NOT AMBULATE MUCH, REQUIRES ASSISTANCE WITH ADLS, FAMILY PROVIDES CARE.... [place] DR. D[place], DCP IS HOME. Addendum: 02/11/20 at 1411 by SHILOH HORNE RN CM Amended: Links added.
[2020-02-11] MEDS ORDERED: CEFTRIAXONE SODIUM 1 GM IVP SCH (15:00)
--- NOTE | 2020-02-11 16:15 | NUR ---
DR. Himanshu PITTS IN ROOM SPEAKING WITH PT. RE:PLAN OF CARE; QUESTIONS ANSWERED BY DR. PITTS.
[2020-02-11] MEDS ORDERED: AZITHROMYCIN 500MG+NS 250ML 250 ML IV SCH (17:00)
[2020-02-11] MEDS ORDERED: FLUT16H EN (17:53)
[2020-02-11] MEDS ORDERED: IPRA3AMP24 IH (17:53)
[2020-02-11] MEDS: ATORVASTATIN CALCIUM 40 MG TABLET PO SCH (20:06)
[2020-02-12] VITALS (7 sets, daily range): BP systolic 76–146; BP diastolic 40–77
[2020-02-12] MEDS: FUROSEMIDE 10 MG/ML 4ML VIAL IV SCH ×3 (04:09→20:19)
--- NOTE | 2020-02-12 04:23 | NUR ---
skin assessment addendum pt sustained small linear ,superficial cut left lateral proximal forearm, scant bleed with good hemostasis ,cleansed with betadine and sterile ns , covered with bandaid adhesive ,tolerated well, stated got caught accidentally by metALLIC CLIP FROM CALL LIGHT while turning Addendum: 02/12/20 at 0427 by BAR OATES RN RN Amended: Links added.
[2020-02-12 04:39] LABS: BASOPHILS % (AUTO) 0.4 % (0.0-5.0); EOSINOPHILS % (AUTO) 1.6 % (0.0-8.0); HEMATOCRIT 41.3 % (42-54); LYMPHOCYTES % (AUTO) 14.2 % (21.0-51.0); MEAN CORPUSCULAR HEMOGLOBIN 31.4 pg (27.0-33.0); MEAN CORPUSCULAR HGB CONC 33.4 g/dL (32.0-36.0); MEAN CORPUSCULAR VOLUME 94.1 fL (79-99); MONOCYTES % (AUTO) 6.4 % (3.0-13.0); NEUTROPHILS % (AUTO) 77.1 % (40.0-77.0); PLATELET COUNT (AUTO) 203 K/uL (130-400); RED BLOOD CELL COUNT(AUTO) 4.39 MIL/uL (4.50-6.20); RED CELL DISTRIBUTION WIDTH 14.6 % (11.0-15.5); WHITE BLOOD COUNT (AUTO) 9.8 K/uL (4.8-10.8)
[2020-02-12 05:11] LABS: B-TYPE NATRIURETIC PEPTIDE 251 pg/mL (0-100)
[2020-02-12 05:47] LABS: CARBON DIOXIDE 31 mmol/L (21-32); CHLORIDE 99 mmol/L (101-111); CREATININE 1.2 mg/dL (0.5-1.5); GLOMERULAR FILTR. RATE CALC 64 mL/min (>60); GLUCOSE,RANDOM 120 mg/dL (70-105); PHOSPHORUS 3.3 mg/dL (2.5-4.9); POTASSIUM 3.8 mmol/L (3.5-5.1); SODIUM SERUM 137 mmol/L (136-145); THYROID STIMULATING HORMONE 1.01 uIU/mL (0.36-3.74); UREA NITROGEN, BLOOD 18 mg/dL (7-18)
[2020-02-12] MEDS: ALBUTEROL INHALER 90MCG/INH IH SCH ×3 (06:03→12:00)
[2020-02-12] MEDS: BUDESONIDE 0.5 MG/2 ML INH IH SCH (06:03)
[2020-02-12] MEDS: [UNRECOGNIZED DRUG - OTHER] PO SCH (09:00)
[2020-02-12] MEDS: CHOLECALCIFEROL 1000 UNIT PO SCH (09:00)
[2020-02-12] MEDS: (Potassium 99 MG) PO SCH (09:00)
[2020-02-12] MEDS: ARTIFICAL TEARS SOL 15 ML OP SCH ×2 (09:00→20:27)
[2020-02-12] MEDS: SPIRIVA 18 MCG IH SCH (09:00)
[2020-02-12] MEDS: LOSARTAN 50 MG TABLET PO SCH (09:12)
[2020-02-12] MEDS: TAMSULOSIN HCL 0.4 MG CAP.ER.24H PO SCH (09:13)
[2020-02-12] MEDS: METOPROLOL TARTRATE 50 MG TAB PO SCH ×2 (09:13→20:19)
[2020-02-12] MEDS: ASPIRIN 81MG TAB.CHEW PO SCH (09:13)
[2020-02-12] MEDS: PREDNISONE 10 MG TABLET PO SCH (09:13)
[2020-02-12] MEDS: ALLOPURINOL 100 MG TABLET PO SCH (09:13)
[2020-02-12] MEDS: ISOSORBIDE MONO 60 MG TAB.SR PO SCH (09:14)
[2020-02-12] MEDS: ENOXAPARIN SODIUM 40 MG/0.4 ML SYRINGE SQ SCH (09:15)
--- NOTE | 2020-02-12 11:11 | NUR ---
HOME O2/HOME DME/ DC DISPO TO HOME WHEN READY VIET NOTES THE RHINOVIRUS +, PT ON HOME O2, HAS ALL DME, STILL PENDING COVID/ ANY ABX RECS, WILL EXPECT DCP TO STILL BE TO HOME WHEN READY Addendum: 02/12/20 at 1113 by SHILOH HORNE RN CM Amended: Links added.
[2020-02-12] MEDS: AZITHROMYCIN 250 MG TABLET PO SCH (12:05)
[2020-02-12] MEDS ORDERED: LACTATED RINGERS 1000ML IV SCH (15:45)
--- NOTE | 2020-02-12 19:21 | NUR ---
Mentioned to Jean Carlos ESTRADA our BIPAP/CPAP unit should be avoided since patient is pending covid results. Jean Carlos ESTRADA will ask patient if any family members can bring his home unit. Addendum: 02/12/20 at 1925 by PILLO CIFUENTES RT Amended: Links added.
[2020-02-12] MEDS: ATORVASTATIN CALCIUM 40 MG TABLET PO SCH (20:19)
[2020-02-12] MEDS: FLUTICASONE PROPIONATE 50MCG/SPRAY 16 GM BOTTLE EN SCH (20:27)
[2020-02-13] MEDS: FUROSEMIDE 10 MG/ML 4ML VIAL IV SCH ×3 (03:16→20:10)
[2020-02-13 04:12] VITALS: BP 150/79
[2020-02-13] MEDS: ALBUTEROL INHALER 90MCG/INH IH SCH ×3 (06:33→18:00)
[2020-02-13] MEDS: BUDESONIDE 0.5 MG/2 ML INH IH SCH ×2 (06:33→18:00)
[2020-02-13 07:54] VITALS: BP 144/64
--- NOTE | 2020-02-13 08:00 | NUR ---
AM ASSESSMENT PT AWAKE AND ALERT, DENIES SOB OR LABORED RESPIRATIONS. O2 PER NC. OOB TO CHAIR WITH SUPERVISION. CONTINUES ON DROPLET ISOLATION.
[2020-02-13] MEDS: SPIRIVA 18 MCG IH SCH (09:00)
[2020-02-13] MEDS: (Potassium 99 MG) PO SCH (09:00)
[2020-02-13] MEDS: [UNRECOGNIZED DRUG - OTHER] PO SCH (09:00)
[2020-02-13] MEDS: CHOLECALCIFEROL 1000 UNIT PO SCH (09:00)
[2020-02-13] MEDS: CETIRIZINE HCL 5 MG TABLET PO SCH (10:27)
[2020-02-13] MEDS: PREDNISONE 10 MG TABLET PO SCH (10:28)
[2020-02-13] MEDS: METOPROLOL TARTRATE 50 MG TAB PO SCH ×2 (10:28→20:10)
[2020-02-13] MEDS: LACTULOSE 20 GM/30 ML UDCUP PO SCH (10:28)
[2020-02-13] MEDS: TAMSULOSIN HCL 0.4 MG CAP.ER.24H PO SCH (10:28)
[2020-02-13] MEDS: ALLOPURINOL 100 MG TABLET PO SCH (10:28)
[2020-02-13] MEDS: ASPIRIN 81MG TAB.CHEW PO SCH (10:28)
[2020-02-13] MEDS: ENOXAPARIN SODIUM 40 MG/0.4 ML SYRINGE SQ SCH (10:29)
[2020-02-13] MEDS: ARTIFICAL TEARS SOL 15 ML OP SCH ×2 (10:46→20:10)
[2020-02-13] MEDS: FLUTICASONE PROPIONATE 50MCG/SPRAY 16 GM BOTTLE EN SCH ×2 (10:46→20:10)
[2020-02-13 12:19] VITALS: BP 97/43
--- NOTE | 2020-02-13 13:30 | NUR ---
BP CALL PLACED TO Cesar FRIAS TO MAKE AWARE OF BP AT NOON DROP TO 90 SYSTOLIC; STATES TO HOLD MEDICATION AND STAGGER AND RESUME WHEN BP IS ABOVE 100. PT ASYMPTOMATIC.
[2020-02-13] MEDS: AZITHROMYCIN 250 MG TABLET PO SCH (13:50)
[2020-02-13 17:12] VITALS: BP 131/78
[2020-02-13] MEDS: LOSARTAN 50 MG TABLET PO SCH (17:56)
[2020-02-13] MEDS: ISOSORBIDE MONO 60 MG TAB.SR PO SCH (17:56)
[2020-02-13 20:02] VITALS: BP 96/45
[2020-02-13] MEDS: ATORVASTATIN CALCIUM 40 MG TABLET PO SCH (20:10)
[2020-02-14] VITALS (7 sets, daily range): BP systolic 107–126; BP diastolic 52–72
[2020-02-14] MEDS: ALBUTEROL INHALER 90MCG/INH IH SCH
[2020-02-14 05:43] LABS: BASOPHILS % (AUTO) 0.4 % (0.0-5.0); EOSINOPHILS % (AUTO) 1.5 % (0.0-8.0); HEMATOCRIT 40.2 % (42-54); LYMPHOCYTES % (AUTO) 15.6 % (21.0-51.0); MEAN CORPUSCULAR HEMOGLOBIN 31.3 pg (27.0-33.0); MEAN CORPUSCULAR HGB CONC 33.6 g/dL (32.0-36.0); MEAN CORPUSCULAR VOLUME 93.1 fL (79-99); MONOCYTES % (AUTO) 7.6 % (3.0-13.0); NEUTROPHILS % (AUTO) 74.4 % (40.0-77.0); PLATELET COUNT (AUTO) 221 K/uL (130-400); RED BLOOD CELL COUNT(AUTO) 4.32 MIL/uL (4.50-6.20); RED CELL DISTRIBUTION WIDTH 14.7 % (11.0-15.5); WHITE BLOOD COUNT (AUTO) 10.3 K/uL (4.8-10.8)
[2020-02-14 05:52] LABS: CREATININE 1.3 mg/dL (0.5-1.5); POTASSIUM 3.2 mmol/L (3.5-5.1)
[2020-02-14 06:00] LABS: B-TYPE NATRIURETIC PEPTIDE 91 pg/mL (0-100)
[2020-02-14] MEDS: BUDESONIDE 0.5 MG/2 ML INH IH SCH (06:00)
[2020-02-14] MEDS: FUROSEMIDE 10 MG/ML 4ML VIAL IV SCH ×2 (06:44→12:01)
[2020-02-14] MEDS: [UNRECOGNIZED DRUG - OTHER] PO SCH (09:00)
[2020-02-14] MEDS: CHOLECALCIFEROL 1000 UNIT PO SCH (09:00)
[2020-02-14] MEDS: (Potassium 99 MG) PO SCH (09:00)
[2020-02-14] MEDS: LOSARTAN 50 MG TABLET PO SCH (09:00)
[2020-02-14] MEDS: ARTIFICAL TEARS SOL 15 ML OP SCH ×2 (09:15→19:59)
[2020-02-14] MEDS: SPIRIVA 18 MCG IH SCH (09:16)
[2020-02-14] MEDS: FLUTICASONE PROPIONATE 50MCG/SPRAY 16 GM BOTTLE EN SCH ×2 (09:16→19:59)
[2020-02-14] MEDS: LACTULOSE 20 GM/30 ML UDCUP PO SCH (09:33)
[2020-02-14] MEDS: CETIRIZINE HCL 5 MG TABLET PO SCH (09:34)
[2020-02-14] MEDS: ENOXAPARIN SODIUM 40 MG/0.4 ML SYRINGE SQ SCH (09:34)
[2020-02-14] MEDS: PREDNISONE 10 MG TABLET PO SCH (09:34)
[2020-02-14] MEDS: METOPROLOL TARTRATE 50 MG TAB PO SCH ×2 (09:35→19:59)
[2020-02-14] MEDS: ALLOPURINOL 100 MG TABLET PO SCH (09:35)
[2020-02-14] MEDS: TAMSULOSIN HCL 0.4 MG CAP.ER.24H PO SCH (09:35)
[2020-02-14] MEDS: ASPIRIN 81MG TAB.CHEW PO SCH (09:35)
--- NOTE | 2020-02-14 12:48 | NUR ---
MEDS HELD COZAAR AND LASIX IV HELD PER BIBI MEDEL TACK PICKER. MADE AWARE OF HYPOKALEMIA, NO NEW ORDERS. STATES TO HOLD BP MEDS FOR HYPOTENSION. PT ASYMPTOMATIC
[2020-02-14] MEDS: ISOSORBIDE MONO 60 MG TAB.SR PO SCH (13:27)
[2020-02-14] MEDS: AZITHROMYCIN 250 MG TABLET PO SCH (13:27)
[2020-02-14] MEDS: ATORVASTATIN CALCIUM 40 MG TABLET PO SCH (19:59)
[2020-02-15 03:53] VITALS: BP 147/84
[2020-02-15] MEDS: ALBUTEROL INHALER 90MCG/INH IH SCH ×3 (06:00→12:00)
[2020-02-15] MEDS: BUDESONIDE 0.5 MG/2 ML INH IH SCH (06:00)
[2020-02-15 06:45] LABS: BASOPHILS % (AUTO) 0.7 % (0.0-5.0); EOSINOPHILS % (AUTO) 2.2 % (0.0-8.0); HEMATOCRIT 40.3 % (42-54); LYMPHOCYTES % (AUTO) 19.2 % (21.0-51.0); MEAN CORPUSCULAR HEMOGLOBIN 31.4 pg (27.0-33.0); MEAN CORPUSCULAR VOLUME 92.4 fL (79-99); MONOCYTES % (AUTO) 7.7 % (3.0-13.0); NEUTROPHILS % (AUTO) 69.8 % (40.0-77.0); PLATELET COUNT (AUTO) 198 K/uL (130-400); RED BLOOD CELL COUNT(AUTO) 4.36 MIL/uL (4.50-6.20); RED CELL DISTRIBUTION WIDTH 14.6 % (11.0-15.5); WHITE BLOOD COUNT (AUTO) 9.8 K/uL (4.8-10.8)
[2020-02-15 07:02] LABS: ALBUMIN 3.4 g/dL (3.5-5.0); BILIRUBIN,TOTAL 0.6 mg/dL (0.2-1.0); CREATININE 1.2 mg/dL (0.5-1.5); POTASSIUM 3.6 mmol/L (3.5-5.1); TOTAL PROTEIN, SERUM 6.8 g/dL (6.0-8.3)
[2020-02-15 08:00] VITALS: BP 133/62
[2020-02-15] MEDS: (Potassium 99 MG) PO SCH (09:00)
[2020-02-15] MEDS: SPIRIVA 18 MCG IH SCH (09:00)
[2020-02-15] MEDS: ARTIFICAL TEARS SOL 15 ML OP SCH (09:00)
[2020-02-15] MEDS: [UNRECOGNIZED DRUG - OTHER] PO SCH (09:00)
[2020-02-15] MEDS: FLUTICASONE PROPIONATE 50MCG/SPRAY 16 GM BOTTLE EN SCH (09:00)
[2020-02-15] MEDS: CHOLECALCIFEROL 1000 UNIT PO SCH (09:00)
[2020-02-15] MEDS: PREDNISONE 10 MG TABLET PO SCH (09:22)
[2020-02-15] MEDS: TAMSULOSIN HCL 0.4 MG CAP.ER.24H PO SCH (09:22)
[2020-02-15] MEDS: CETIRIZINE HCL 5 MG TABLET PO SCH (09:23)
[2020-02-15] MEDS: ASPIRIN 81MG TAB.CHEW PO SCH (09:23)
[2020-02-15] MEDS: METOPROLOL TARTRATE 50 MG TAB PO SCH (09:23)
[2020-02-15] MEDS: LOSARTAN 50 MG TABLET PO SCH (09:23)
[2020-02-15] MEDS: ENOXAPARIN SODIUM 40 MG/0.4 ML SYRINGE SQ SCH (09:24)
[2020-02-15] MEDS: ALLOPURINOL 100 MG TABLET PO SCH (09:24)
[2020-02-15] MEDS: ISOSORBIDE MONO 60 MG TAB.SR PO SCH (09:24)
[2020-02-15] MEDS: LACTULOSE 20 GM/30 ML UDCUP PO SCH (09:25)
[2020-02-15] MEDS: AZITHROMYCIN 250 MG TABLET PO SCH (11:08)
[2020-02-15 11:41] VITALS: BP 104/76
--- NOTE | 2020-02-15 14:00 | NUR ---
Patient given discharge instructions and verbalized understanding , reviewed medications and follow-up appointment with this primary at the [facility] in 3-5 days and to call and make that appointment. iv removed with catheter intact and site dressed. Monitoring unit notified and telemetry unit removed. patient denies pain at this time. belonging gathered and placed in patient bag,no questions or concern at this time. patient called for his ride and will let us know when the arrive so we can take him down to met them.
--- NOTE | 2020-02-15 15:45 | NUR ---
PATIENT TAKING BY WHEELCHAIR TO ER AREA TO MEET
== END 2020-02-15 15:40 | disposition home or self-care (01) | DRG 205 ==
LOC: EDH 14:24 → EDHIP 17:46 → 2DH 18:53 → 4BH 02-15 00:33
PROVIDERS: ADMIT Internal Medicine; ATTEND Internal Medicine
DX: M94.0 Chondrocostal junction syndrome [Tietze] (principal); J96.21 Acute and chronic respiratory failure with hypoxia; J18.9 Pneumonia, unspecified organism; I50.23 Acute on chronic systolic (congestive) heart failure; Z68.41 Body mass index [BMI] 40.0-44.9, adult; I11.0 Hypertensive heart disease with heart failure; D64.9 Anemia, unspecified; J43.2 Centrilobular emphysema; Z20.828 Contact with and (suspected) exposure to other viral communicable diseases; F32.9 Major depressive disorder, single episode, unspecified; K21.9 Gastro-esophageal reflux disease without esophagitis; M19.90 Unspecified osteoarthritis, unspecified site; E11.9 Type 2 diabetes mellitus without complications; E66.01 Morbid (severe) obesity due to excess calories; E78.5 Hyperlipidemia, unspecified; I25.10 Atherosclerotic heart disease of native coronary artery without angina pectoris; N40.0 Benign prostatic hyperplasia without lower urinary tract symptoms; R74.8 Abnormal levels of other serum enzymes; Z88.8 Allergy status to other drugs, medicaments and biological substances; Z99.3 Dependence on wheelchair; Z87.891 Personal history of nicotine dependence; Z83.3 Family history of diabetes mellitus; Z82.49 Family history of ischemic heart disease and other diseases of the circulatory system
CPT/HCPCS: 36415; 71045; 71275; 80048; 80053; 82550; 82728; 83605; 83615; 83735; 83874; 83880; 84100; 84145; 84443; 84484; 85025; 85378; 85610; 85730; 86140; 86738; 87040; 87449; 87633; 87635; 93005; 93306; 93356; 99291; G0378; J0456; J0696; J1650; J1940; J7120; J7512; Q9967